=== PATIENT | male | born 1940 | race Hispanic/Latino ===

== ENCOUNTER 2017-04-03 09:33 | Outpatient (CLI) | payer MEDICARE, MEDICAID ==
--- OUTSIDE RECORDS SUMMARY | 2017-04-03 09:36 | XMS | Clinical Summary ---
:1940 Author Organization [facility] Address [address] [place] [address] Phone Care Team Providers Name Role Phone , Primary Care Provider Unavailable Allergies Not on File Current Medications Not on file Active Problems Not on file Social History Tobacco Use Types Packs/Day Years Used Date Never Assessed Sex Assigned at Date Recorded Not on file Last Filed Vital Signs Not on file Plan of Treatment Not on file Results Not on filefrom Last 3 Months
--- NOTE | 2017-04-04 11:52 | RAD ---
MODIFIED BARIUM SWALLOW WITH SPEECH THERAPIST: DATE: 04/03/17. HISTORY: A 76-year-old male with dysphagia, following other unspecified cerebrovascular disease, I69.991; dysphagia, oropharyngeal phase, R13.11; other cerebrovascular disease, I67.89; feeding difficulties, R63.3. Recent episodes of emesis. History of pneumonias in the past. FINDINGS: Edentulous. Tongue protrusion. The study is somewhat difficult to evaluate because of the patient' s body moves multiple times in and out of the field of view. The anatomy of the larynx is very dist orted, such that it is difficult to identify the epiglottis. There is premature free spillage into what appears to be the vallecula and piriform sinuses. There is limited hyoid protraction and decre ased laryngeal elevation. No definite aspiration is visualized. IMPRESSION: 1. Significant pharyngeal phase of dysphagia. 2. Distortion of anatomy of the larynx, with abnormal, deformed epiglottis. 3. Premature free spillage and residue. 4. No definite aspiration identified. 5. Please see separate, complete report by the speech therapist. POS: SHARATH
== END 2017-04-03 09:34 | disposition home or self-care (01) ==
PROVIDERS: ATTEND Family Medicine
DX: I69.891 Dysphagia following other cerebrovascular disease (principal); R13.12 Dysphagia, oropharyngeal phase; I67.89 Other cerebrovascular disease
CPT/HCPCS: 74230; G8996-GN-CK; G8997-GN-CK; G8998-GN-CK

== ENCOUNTER 2017-05-07 11:35 | Day surgery (SDC) | payer MEDICARE, MEDICAID ==
[2017-05-06 08:38] VITALS: BMI 17.6
[2017-05-07] MEDS ORDERED: Propofol 200 MG/20 ML VIAL ONE (14:07)
--- NOTE | 2017-05-07 16:03 | OP ---
PROCEDURE PERFORMED: Esophagogastroduodenoscopy. POSTPROCEDURE DIAGNOSIS: Normal esophagogastroduodenoscopy except for hiatal hernia. RECOMMENDATIONS: 1. Continue PPI therapy. 2. Consider other causes of nausea, vomiting, possibly to body habitus and activity or other medica tions. RECOMMENDATIONS: Continue present medications. ANESTHESIA: TIVA. PROCEDURE IN DETAIL: After the patient was informed of the risks, benefits, possible complications of endoscopy including perforation, bleeding, reactions to medication and aspiration, informed conse nt was obtained from the patient's family. He was brought to the endoscopy suite where he was sedat ed in gradual fashion. Once he was comfortable, a bite block was placed in incisural orifice. The endoscope was advanced through the esophagus, stomach and second and third portion of duodenum and s lowly removed. There was a 10 cm hiatal hernia noted, which has been noted in the past, it was a sl iding type without any other abnormalities. There was no evidence of gastritis or ulcers. The smal l bowel was normal and the stomach was otherwise normal in forward and retroflexed views. The small bowel was evaluated in the duodenum. The scope was removed. The patient tolerated the procedure w ell with no complications. RECOMMENDATIONS: Follow up in my office as needed.
== END 2017-05-07 15:30 | disposition home or self-care (01) ==
LOC: SDC 11:35
PROVIDERS: ATTEND Internal Medicine Gastroenterology
PROC: 0DJ08ZZ Inspection of Upper Intestinal Tract, Via Natural or Artificial Opening Endoscopic (ICD-10-PCS; principal; 2017-05-07)
DX: K21.9 Gastro-esophageal reflux disease without esophagitis (principal); K44.9 Diaphragmatic hernia without obstruction or gangrene; M19.90 Unspecified osteoarthritis, unspecified site; E78.5 Hyperlipidemia, unspecified; I42.9 Cardiomyopathy, unspecified; I07.1 Rheumatic tricuspid insufficiency; F79 Unspecified intellectual disabilities; G40.409 Other generalized epilepsy and epileptic syndromes, not intractable, without status epilepticus; G82.50 Quadriplegia, unspecified; M81.0 Age-related osteoporosis without current pathological fracture; M24.549 Contracture, unspecified hand; Z79.899 Other long term (current) drug therapy; Z98.49 Cataract extraction status, unspecified eye; Z90.49 Acquired absence of other specified parts of digestive tract; Z98.890 Other specified postprocedural states; Z86.11 Personal history of tuberculosis; Z87.01 Personal history of pneumonia (recurrent); Z86.19 Personal history of other infectious and parasitic diseases
CPT/HCPCS: J2704